=== PATIENT | male | born 1980 | race Caucasian/White ===

== ENCOUNTER 2021-12-01 06:23 | Emergency (ER) | payer OTHER ==
[2021-12-01 08:01] LABS: HEMOGLOBIN 13.5 gm/dl (14.0-17.5); RED BLOOD COUNT 4.31 M/UL (4.20-5.50); WHITE BLOOD COUNT 6.3 K/UL (4.5-11.0)
[2021-12-01 08:22] LABS: BUN/CREATININE RATIO 12 (0-10)
== END 2021-12-01 10:32 | disposition home or self-care (01) ==
LOC: ER1 06:23
PROVIDERS: Family Medicine
DX: R07.9 Chest pain, unspecified (principal); R06.00 Dyspnea, unspecified; R05.9 Cough, unspecified; J44.9 Chronic obstructive pulmonary disease, unspecified; F17.200 Nicotine dependence, unspecified, uncomplicated
CPT/HCPCS: 71045; 80053; 82550; 82553; 84484; 85025; 93005; 99285